=== PATIENT | female | born 1940 | race Caucasian/White ===

== ENCOUNTER → 2016-11-05 | Outpatient (CLI) | payer MEDICARE, OTHER ==
[2016-11-05 10:26] LABS: Basophils % (A) 0 %; CH 30.5; CHCM 32.3; Eosinophils # (A) 0.3 k/uL (0-0.7); Eosinophils % (A) 4 %; HCT 38.2 % (34.0-46.0); HDW 2.24; HGB 12.7 gm/dL (11.4-16.0); Luc # (Auto) 0.19; Luc % (Auto) 3; Lymphocytes % (A) 30 %; MCH 31.6 pg (25.0-35.0); MCHC 33.3 g/dL (31.0-37.0); MCV 95.1 fL (80.0-100.0); Mean Platelet Volume 6.9; Monocytes # (A) 0.3 k/uL (0-1.0); Monocytes % (A) 5 %; Neutrophils # (A) 3.8 k/uL (1.3-7.7); Neutrophils % (A) 58 %; RBC 4.02 m/uL (3.80-5.40); RDW 12.3 % (11.5-15.5); WBC 6.6 k/uL (3.8-10.6); WBC (Perox) 6.59
[2016-11-05 12:03] LABS: Erythrocyte Sedimentation Rate 58 mm/hr (0-20)
== END | disposition home or self-care (01) ==
LOC: LABWHC1 09:33
PROVIDERS: ATTEND Orthopaedic Surgery
DX: T84.069 Wear of articular bearing surface of unspecified internal prosthetic joint (principal); M25.462 Effusion, left knee; M25.562 Pain in left knee
CPT/HCPCS: 36415; 85025; 85652; 86140

== ENCOUNTER → 2017-04-05 | Outpatient (CLI) | payer MEDICARE, OTHER | END | disposition home or self-care (01) | LOC: LABPAT 16:28 | PROVIDERS: ATTEND Orthopaedic Surgery | DX: Z01.812 Encounter for preprocedural laboratory examination (principal) | CPT/HCPCS: 87070 ==

== ENCOUNTER → 2017-04-17 | Outpatient (CLI) | payer MEDICARE, OTHER ==
[2017-04-17 12:27] LABS: HCT 42.3 % (34.0-46.0); HGB 12.4 gm/dL (11.4-16.0); MCH 28.3 pg (25.0-35.0); MCHC 29.4 g/dL (31.0-37.0); MCV 96.1 fL (80.0-100.0); Mean Platelet Volume 8.2; Platelet Count 332 k/uL (150-450); WBC 12.1 k/uL (3.8-10.6)
[2017-04-17 12:29] LABS: Partial Thromboplastin Time 24.6 sec (22.0-30.0); Prothrombin Time 9.7 sec (9.0-12.0)
[2017-04-17 12:51] LABS: Appearance,Urine Clear (Clear); Bilirubin,Urine Negative (Negative); Blood,Urine Negative (Negative); Color,Urine Light Yellow; Glucose,Urine (UA) Negative (Negative); Ketones,Urine Negative (Negative); Leukocyte Esterase,Urine Negative (Negative); Nitrite,Urine Negative (Negative); PH, Urine 5.5 (5.0-8.0); Protein,Urine Negative (Negative); Specific Gravity,Urine 1.007 (1.001-1.035); Urobilinogen,Urine <2.0 mg/dL (<2.0)
[2017-04-17 12:53] LABS: ALT 28 U/L (9-52); AST 19 U/L (14-36); Albumin 4.6 g/dL (3.5-5.0); Alkaline Phosphatase 66 U/L (38-126); Anion Gap 12 mmol/L; Blood Urea Nitrogen 26 mg/dL (7-17); Calcium 10.4 mg/dL (8.4-10.2); Carbon Dioxide 32 mmol/L (22-30); Chloride 99 mmol/L (98-107); Glucose 109 mg/dL (74-99); Sodium 143 mmol/L (137-145); Total Bilirubin 0.8 mg/dL (0.2-1.3); Total Protein 7.9 g/dL (6.3-8.2)
== END | disposition home or self-care (01) ==
LOC: LABPAT 11:26
PROVIDERS: ATTEND Orthopaedic Surgery
DX: Z01.818 Encounter for other preprocedural examination (principal); M17.12 Unilateral primary osteoarthritis, left knee; Z96.652 Presence of left artificial knee joint; Z51.81 Encounter for therapeutic drug level monitoring; Z79.01 Long term (current) use of anticoagulants
CPT/HCPCS: 36415; 80053; 81003; 85027; 85610; 85730

== ENCOUNTER 2017-04-23 07:30 | Inpatient (IN) | payer MEDICARE, OTHER ==
[2017-04-16 12:48] VITALS: BMI 35.2
[~2017-04-23 07:30] MED LIST: ACETAMINOPHEN TAB 500 MG TAB PO ONE; CLINDAMYCIN 900 MG in DEXTROSE 5% IN WATER 50 ML IVPB ONE; HYDROmorphone 0.5 MG/0.5 ML SYRINGE IVP PRN; LIDOCAINE 1% 20 ML VIAL (10MG/ML) FOR IV START INTRADERMA PRN; MELOXICAM 7.5 MG TAB PO ONE; ONDANSETRON 4 MG/2 ML VIAL IVP ONE; TRANEXAMIC ACID 1,000 MG in SODIUM CHLORIDE 0.9% 50 ML IVPB ONE
[2017-04-23] MEDS ORDERED: ROPIVACAINE 246.25 MG, EPINEPHrine 0.5 MG, KETOROLAC 30 MG, cloNIDine HCL/PF 80 MCG, WA... MISCELLANE ONE ×5 (09:20)
[2017-04-23] MEDS: LACTATED RINGERS 1,000 ML IV SCH (12:45)
[2017-04-23] MEDS ORDERED: DEXAMETHASONE SOD PHOS (MDV) 100 MG/10 ML VIAL IV ONE (12:55)
[2017-04-23 13:05] LABS: Glucose,Whole Blood 87 mg/dL (75-99)
[2017-04-23] MEDS ORDERED: MIDAZOLAM 2 MG/2 ML VIAL IV ONE (13:13)
[2017-04-23] MEDS ORDERED: HYDROmorphone 2 MG/ML 1 ML SYRINGE IVP PRN (13:27)
[2017-04-23] MEDS ORDERED: MAGNESIUM HYDROXIDE 2,400 MG/10 ML CUP PO PRN (13:27)
[2017-04-23] MEDS ORDERED: HYDROcodone/APAP 5-325MG 1 EACH TAB PO PRN (13:27)
[2017-04-23] MEDS ORDERED: ONDANSETRON 4 MG/2 ML VIAL IVP PRN (13:27)
[2017-04-23] MEDS ORDERED: BISACODYL 10 MG SUPP RECTAL PRN (13:27)
[2017-04-23] MEDS ORDERED: NALOXONE 0.4 MG/ML 1 ML VIAL IV PRN (13:27)
[2017-04-23] MEDS ORDERED: hydrOXYzine PAMOATE 25 MG CAP PO PRN (13:27)
[2017-04-23] MEDS ORDERED: DIAZEPAM 5 MG TAB PO PRN ×2 (13:27)
[2017-04-23] MEDS ORDERED: HYDROmorphone 0.5 MG/0.5 ML SYRINGE IVP PRN ×3 (13:27)
[2017-04-23] MEDS ORDERED: NA PHOS,M-B/NA PHOS,DI-BA 133 ML ENEMA RECTAL PRN (13:27)
[2017-04-23] MEDS ORDERED: LIDOCAINE 1% INJ 10MG/ML (20 ML MDV) ONE (13:36)
[2017-04-23] MEDS ORDERED: PROPOFOL 10 MG/ML 20 ML VIAL IV ONE (13:36)
[2017-04-23] MEDS ORDERED: TRANEXAMIC ACID 1,000 MG/10 ML VIAL ONE (13:36)
[2017-04-23] MEDS ORDERED: ePHEDrine SULFATE/0.9% NACL/PF 50 MG/5 ML SYRINGE IV ONE (13:36)
[2017-04-23] MEDS ORDERED: MIDAZOLAM 2 MG/2 ML VIAL ONE (13:36)
[2017-04-23] MEDS ORDERED: fentaNYL (PF) 50 MCG/ML 2 ML AMP ONE (13:36)
[2017-04-23] MEDS ORDERED: SODIUM CHLORIDE 0.9% 100 ML BAG ONE (13:36)
--- NOTE | 2017-04-23 13:39 | P.ONQ ---
Anesthesiology Proc Note - PNB - Peripheral Nerve Block Performed Left Adductor Canal Infusion Time Out Performed: Yes Procedure Start Time: 13:18 Procedure Stop Time: 13:25 Indication: Acute Post-Operative Pain, Requested by physician Sedation Type: Sedate with meaningful contact maintained Preparation: Sterile Dressing Position: Supine Catheter: Indwelling Needle Types: On-Q Needle Size: 100mm (4") Needle Gauge: 20 Technique: Ultrasound Injectate: 0.5% Ropivacaine (see comment for volume) (ropi .5% 20ccc) Blood Aspirated: No Pain Paresthesia on Injection Noted: No Resistance on Injection: Normal Events: Uneventful and Well Tolerated
[2017-04-23] MEDS ORDERED: ROPIVACAINE 1,100 MG, SODIUM CHLORIDE 0.9% 330 ML MISCELLANE PRN ×2 (13:40)
[2017-04-23] MEDS ORDERED: CLINDAMYCIN 1,800 MG in SODIUM CHLORIDE 0.9% IRRIGATIO 3,000 ML IRRIGATION ONE (14:08)
[2017-04-23] MEDS ORDERED: LACTATED RINGERS 1,000 ML IV ONE (14:13)
--- NOTE | 2017-04-23 15:37 | P.OP ---
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 Postoperative Diagnosis: Failed left total knee arthroplasty Procedure(s) Performed: Revision left total knee arthroplasty Implants: Zam[employer] Legion Oxinium femoral component size 4, left constrained [employer] left revision tibial baseplate size 4 Zamora [employer] Nephew size 13 mm Sima II constrained articular insert, size 3-4 [employer] pressfit stem 13mm x 120mm (Tibia) [employer] Offset compliance technician 6mm [employer] pressfit stem 16mm x 160mm (femur) All components were cemented using Adioso antibiotic bone cement with Tobramycin x2 The articulation is Oxinium on polyethylene. Anesthesia: spinal Surgeon: Rahat Gross Relocation Services Specialist #1: Shameka Harding Estimated Blood Loss (ml): 100 Pathology: other (culture) Condition: stable Disposition: PACU Indications for Procedure: This is a 76-year-old female who presented to my office with pain and instability of her left total knee. Her knee replacement was done a number of years ago at a different hospital. X-rays demonstrate significant polyethylene wear and after discussing the surgical and nonsurgical treatment options with her at length, she wishes to proceed with revision left total knee arthroplasty. Informed consent was obtained. Operative Findings: The operative findings are consistent with severe polyethylene wear left total knee Description of Procedure: Patient was seen in the preoperative area consent was reviewed and operative site was marked with a skin marker. An adductor canal pain catheter was placed by anesthesia in the preoperative area. Patient was then brought to the operating room and given preoperative antibiotics intravenously. A spinal anesthetic was administered by the anesthesia department. A tourniquet was placed on the upper thigh and the lower extremity was prepped and draped in usual sterile fashion. A gram of transexamic acid was given. A universal timeout was then performed which confirmed the patient's name, surgical site, ALLERGIES, and consent. The lower extremity was then exsanguinated and tourniquet was inflated to 250 mmHg. A standard and anterior midline approach to the knee was performed. The skin and subcutaneous tissue was dissected down to the patellar tendon. A medial parapatellar arthrotomy was then performed. The knee was then extended, the patellar was everted, and the knee was again flexed. On gross visual inspection, there is large amount of synovitis as well as significant polyethylene wear. The polyethylene component was then easily removed with an osteotome. Attention was then directed to the femoral component. Using a micro -oscillating saw and osteotome, the cement implant interface was disrupted. The femoral component was then removed with minimal bone loss. Next attention was then directed to the tibial component. Again using a micro-oscillating saw and osteotome, the tibial component was removed with minimal bone loss. Attention was then directed to preparing the femoral side of the revision. The femoral canal was reamed with a beamer hand to the appropriate size. The distal cutting block was then placed in the distal femur cut was then performed. Next the sizing guide was then placed, and set for 3 of external rotation. Anterior and posterior cuts, as well as the chamfer cuts were then made. Next, the trial femur was then placed in the cutting guide for the box was then placed. The bone was then reamed and broached for the femoral box. The trial was then removed. Attention was then directed to the tibia. The tibia was then gently subluxed forward with large bent knee retractor. The intramedullary reamer was then placed down the canal of the tibia. The cutting jig was then placed in the proximal tibia was then cut. The tibia was then sized, and broached for the tibial sleeve. The tibia was also drilled. Next the trials were then placed with appropriate liner. Knee was able to fully extend, and flex to 120 without difficulty. Also stable throughout all range of motion. All the trials were then removed. The cut surfaces of bone were then irrigated with pulsatile lavage. The posterior structures were injected with the ropivacaine solution. The knee was also irrigated with Irrisept solution. The components were then opened, the cement was mixed, and the components were then cemented in place. The cement was allowed to harden with the knee in full extension. While the cement was hardening, the remaining soft tissues were then injected with a ropivacaine solution, which consisted of 246.25 mg of ropivacaine, 0.5 mg of epinephrine, 30 mg of Toradol, 80 g of clonidine, and 48.45 mL of sterile water, for a total of 100 mL of fluid injected. After the cemented hardened. The tourniquet was released, and hemostasis was obtained. A second gram of transexamic acid was given. The knee was again irrigated. The knee was again taken through range of motion and found to be stable throughout all range of motion of 0-130 , and the patella tracked normally. The fascia was then closed with #2 strata fix suture. The subcutaneous tissue was closed with 3-0 Vicryl and 3-0 strata fix. Dermabond glue was used for the skin and placed with the knee in flexion. The patient was placed in a sterile silver dressing. Patient was then transferred to recovery room in stable condition. The customer care assistant JOHANNA Alvarado was required due the complexity surgery and the need for a skilled surgical first assistant. She assisted in positioning, draping, retraction, and closure of the wound.
--- NOTE | 2017-04-23 16:34 | XR ---
EXAMINATION TYPE: XR knee limited LT DATE OF EXAM: 04/23/2017 CLINICAL HISTORY: Left knee pain and arthritis status post total knee replacement. TECHNIQUE: Portable AP and crosstable lateral views of the left knee are obtained immediately postop eratively. COMPARISON: None FINDINGS: Metallic hardware from total left knee arthroplasty is seen and appears satisfactory in al ignment and position. There is evidence of recent surgery with diffuse subcutaneous gas and soft tis kyle swelling are noted. IMPRESSION: METALLIC HARDWARE FROM TOTAL LEFT KNEE ARTHROPLASTY IS SATISFACTORY IN ALIGNMENT.
[2017-04-23] MEDS: CLINDAMYCIN 900 MG in DEXTROSE 5% IN WATER 50 ML IVPB SCH ×2 (20:18)
[2017-04-23] MEDS: SENNOSIDES-DOCUSATE SODIUM 1 EACH TAB PO SCH (20:18)
[2017-04-23] MEDS: ASPIRIN 325 MG TAB PO SCH (20:18)
[2017-04-24] MEDS: LACTATED RINGERS 1,000 ML IV SCH (05:50)
[2017-04-24] MEDS: SODIUM CHLORIDE 0.9% 1,000 ML IV SCH ×3 (05:50→20:51)
[2017-04-24] MEDS: CLINDAMYCIN 900 MG in DEXTROSE 5% IN WATER 50 ML IVPB SCH ×2 (05:50)
[2017-04-24] MEDS: LEVOTHYROXINE 112 MCG TAB PO SCH (06:10)
--- NOTE | 2017-04-24 07:15 | P.PN ---
Progress Note - Text Progress Note Date: 04/24/17 Patient is a 76 y.o s/p Left knee replacement PO day 1. Patient had Adductor canal catheter placed for post op pain control. Patient going well. VAS 3/10. Patient extremely happy with pain control. Ambulating without weakness.
[2017-04-24 07:58] LABS: Basophils % (A) 0 %; Eosinophils % (A) 0 %; HCT 34.7 % (34.0-46.0); HGB 10.6 gm/dL (11.4-16.0); Lymphocytes # (A) 0.8 k/uL (1.0-4.8); Lymphocytes % (A) 5 %; MCH 29.7 pg (25.0-35.0); MCHC 30.7 g/dL (31.0-37.0); MCV 96.9 fL (80.0-100.0); Mean Platelet Volume 7.6; Monocytes # (A) 0.8 k/uL (0-1.0); Monocytes % (A) 5 %; Neutrophils # (A) 15.3 k/uL (1.3-7.7); Neutrophils % (A) 90 %; Platelet Count 285 k/uL (150-450); RBC 3.58 m/uL (3.80-5.40); RDW 12.7 % (11.5-15.5); WBC 17.1 k/uL (3.8-10.6)
[2017-04-24] MEDS: HYDROcodone/APAP 5-325MG 1 EACH TAB PO PRN ×2 (08:22→15:46)
--- NOTE | 2017-04-24 08:38 | CONS ---
CONSULTATION DATE OF SERVICE: 04/23/2017. REASON FOR CONSULTATION: Advice regarding hypertension and multiple other medical issues requested by Dr. Gross. 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 Gross. There is no history of any fever or rigors. No history of headache. No history of chest pain or palpitations. No shortness of breath, hematochezia or melena at this time. PAST MEDICAL HISTORY: Hypertension, mitral valve prolapse, history of DJD, autoimmune response to the previous surgery. MEDICATIONS: Medications prior to admission include: 1. Prednisone 5 mg p.o. daily. 2. Vitamin B complex 1 p.o. daily. 3. Naprosyn 375 mg p.o. b.i.d. 4. Multivitamins 1 p.o. daily. 5. Hyzaar 50/12.5 mg p.o. q.a.m. 6. Synthroid 112 mcg p.o. q.a.m. 7. Iron sulfate 325 mg p.o. daily. 8. Diltiazem 120 mg p.o. q.h.s. 9. Aspirin 81 mg p.o. q.h.s. daily. 10.Vitamin C 500 mg p.o. daily. 11.Acetaminophen ER 650 mg p.o. b.i.d. ALLERGIES: Allergies are CEPHALOSPORIN, LATEX, MACROBID, SULFA, ULTRASOUND COUPLING MEDIUM. FAMILY HISTORY: History of Crohn's disease in the family. SOCIAL HISTORY: No history of smoking. No history of alcohol. REVIEW OF SYSTEMS: ENT: No diminished hearing or diminished vision. CARDIOVASCULAR SYSTEM: No angina. RESPIRATORY SYSTEM: No cough or hemoptysis. GI: No nausea. : No dysuria. NERVOUS SYSTEM: No numbness or weakness. ALLERGY/IMMUNOLOGY: No history of asthma. MUSCULOSKELETAL: As mentioned earlier. HEMATOLOGY/ONCOLOGY: No history of anemia. ENDOCRINE: Hypothyroidism. CONSTITUTIONAL: As mentioned earlier. DERMATOLOGY: Negative. RHEUMATOLOGY: Negative. PSYCHIATRY: As mentioned earlier. PHYSICAL EXAMINATION: The patient is alert and oriented x3. Pulse is 89, blood pressure is 136/66, respirations 15, temperature 97.5, pulse ox 96% on room air. HEENT: Conjunctivae normal. Oral mucosa moist. Neck is no jugular venous distention. No carotid bruit. No lymph node enlargement. CARDIOVASCULAR: S1 and S2 muffled. RESPIRATORY: Breath sounds diminished at the bases. No rhonchi no crackles. ABDOMEN: Soft, nontender. LEGS: Status post surgery. NERVOUS SYSTEM: Higher functions as mentioned earlier. Moves all 4 limbs. No focal motor or sensory deficits LYMPHATICS: No lymphadenopathy of the neck, axillae or groin. SKIN: No ulcer, rash or bleeding. JOINTS: Noted. LAB STUDIES: WBC 12., previously done. Otherwise UA unremarkable. ASSESSMENT: 1. Status post revision of the left total knee joint arthroplasty. 2. Hypertension. 3. History of mitral valve prolapse. 4. History of degenerative joint disease. 5. 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 6. History of irritable bowel syndrome. 7. History of cholecystectomy. 8. FULL CODE. RECOMMENDATIONS AND DISCUSSION: This 76-year-old woman who presented with multiple complex medical issues, will monitor the patient closely. Continue the current medications. Continue symptomatic treatment. Otherwise I would recommend resume the home medications and DVT prophylaxis and incentive spirometry. We will follow the patient closely with you. The patient may be asked to follow up with primary physician after discharge. We will follow the patient closely with you and followup labs also will be recommended. Thank you Dr. Gross for letting us participate in the care of this patient. The patient is on aspirin twice daily. MMODL / IJN: [id number] / MTDChris
--- NOTE | 2017-04-24 08:47 | P.PN ---
Subjective Progress Note Date: 04/24/17 This is a 76-year-old female who is status post revision left total knee arthroplasty. This is postoperative day #1. Patient states her pain is well controlled and she has been up and out of bed several times today. Patient denies any further complaints. Objective - Vital Signs Vital signs: Vital Signs Temp 98.0 F 04/24/17 01:48 Pulse 77 04/24/17 01:48 Resp 16 04/24/17 01:48 BP 127/73 04/24/17 01:48 Pulse Ox 93 L 04/24/17 01:48 Intake & Output 04/23/17 04/24/17 04/24/17 18:59 06:59 18:59 Intake Total 1557 938 Output Total 100 Balance 1457 938 Weight 97.522 kg Intake: IV 1557 Intake, IV Titration 300 Amount Sodium Chloride 0.9% 1, 300 000 ml @ 65 mls/hr IV . [id number] [facility] Rx#:[id number] Oral 638 Output: Estimated Blood Loss 100 Other: # Voids 2 - Exam Vital signs are stable. Patient is in no acute distress and is alert and oriented 3. Calf is soft and nontender. Dressing is clean, dry, and intact. Neurovascular status intact. Patient has full foot and ankle motion without difficulty. - Labs CBC & Chem 7: 04/24/17 07:17 Labs: Abnormal Lab Results - Last 24 Hours (Table) 04/24/17 Range/Units 07:17 WBC 17.1 H (3.8-10.6) k/uL RBC 3.58 L (3.80-5.40) m/uL Hgb 10.6 L (11.4-16.0) gm/dL MCHC 30.7 L (31.0-37.0) g/dL Neutrophils # 15.3 H (1.3-7.7) k/uL Lymphocytes # 0.8 L (1.0-4.8) k/uL Microbiology - Last 24 Hours (Table) 04/23/17 14:06 Gram Stain - Preliminary Knee - Left Wound Culture - Preliminary 04/23/17 14:06 Anaerobic Culture - Preliminary Knee - Left Assessment and Plan (1) S/P total knee arthroplasty Current Visit: Yes Status: Acute Code(s): Z96.659 - PRESENCE OF UNSPECIFIED ARTIFICIAL KNEE JOINT SNOMED Code(s): 2265794606664 (2) Prosthetic wear following total knee arthroplasty Current Visit: Yes Status: Acute Code(s): T84.069A - WEAR OF ARTIC BEARING SURFACE OF UNSP INT PROSTH JOINT, INIT; Z96.659 - PRESENCE OF UNSPECIFIED ARTIFICIAL KNEE JOINT SNOMED Code(s): 392786373 Plan: #1 Continue with routine postoperative care, leave dressing in place for one week #2 Anticoagulation with aspirin. #3 Physical therapy and CPM today. #4 Appreciate input from medicine. #5 Anticipate discharge to rehab Saturday.
[2017-04-24] MEDS: predniSONE 5 MG TAB PO SCH (09:01)
[2017-04-24] MEDS: ASPIRIN 325 MG TAB PO SCH ×2 (09:02→20:45)
[2017-04-24] MEDS: FERROUS SULFATE 325 MG TAB PO SCH (09:02)
[2017-04-24] MEDS: LOSARTAN-HCTZ 50-12.5 MG 1 EACH TAB PO SCH (09:03)
[2017-04-24] MEDS: MULTIVITAMINS, THERA 1 EACH TAB PO SCH (09:04)
[2017-04-24] MEDS: MELOXICAM 7.5 MG TAB PO SCH (11:57)
[2017-04-24] MEDS: B COMPLEX-VIT C-VIT E-ZINC 1 EACH TAB PO SCH (11:58)
[2017-04-24] MEDS ORDERED: PANTOPRAZOLE 40 MG/10 ML VIAL IVP SCH (13:15)
--- NOTE | 2017-04-24 14:48 | XR ---
EXAMINATION TYPE: XR chest 1V DATE OF EXAM: 04/24/2017 COMPARISON: NONE HISTORY: Rehabilitation placement TECHNIQUE: Single frontal view of the chest is obtained. FINDINGS: Patient is rotated. Heart is enlarged. Prominent lung volume may be indicative of COPD. Th ere is no evident airspace disease, pneumothorax, or pleural effusion. Acromioclavicular joint arthro serge noted in the shoulders. IMPRESSION: Cardiomegaly. No acute abnormality evident. Rotated exam.
--- NOTE | 2017-04-24 17:19 | PN ---
PROGRESS NOTE DATE OF SERVICE: 04/24/2017 This 76-year-old woman who was admitted with revision of left total knee arthroplasty is improving significantly. No chest pain. No palpitations. No fever. PHYSICAL EXAMINATION: Alert and oriented x3. Pulse 68, blood pressure 120/58, respiration 16, temperature 97.8, pulse ox 93% on 2 L. HEENT: Conjunctivae normal. Oral mucosa moist. NECK: No jugular venous distention. No carotid bruit. No lymph node enlargement. CARDIOVASCULAR SYSTEM: S1, S2 muffled. RESPIRATORY SYSTEM: Breath sounds diminished at the bases. No rhonchi. No crackles. ABDOMEN: Soft, non-tender. No mass palpable. LEGS: Status post surgery. NERVOUS SYSTEM: Higher functions as mentioned earlier. No focal motor or sensory deficit. LYMPHATICS: No lymph node palpable in neck, axillae or groin. LABS: WBC 17.1, hemoglobin 10.6. ASSESSMENT: 1. Status post revision of the left total knee arthroplasty. 2. Hypertension. 3. Increased white count, possibly reactive. 4. History of mitral valve prolapse. 5. History of degenerative joint disease. 6. 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 7. History of irritable bowel syndrome. 8. History of cholecystectomy. 9. FULL CODE. RECOMMENDATIONS AND DISCUSSION: In this 76-year-old woman who presented with multiple complex medical issues, we will monitor the patient closely, continue the current medications, continue symptomatic treatment. I would recommend UA with micro and continue the current medications. I would also recommend repeat CBC. is also requested by the patient. Will continue to monitor. UA with micro has been ordered. MMODL / IJN: [id number] / BEATA
[2017-04-24] MEDS: SENNOSIDES-DOCUSATE SODIUM 1 EACH TAB PO SCH (20:45)
[2017-04-24] MEDS: DILTIAZEM CD 120 MG CAP.ER.24H PO SCH (20:45)
[2017-04-24] MEDS ORDERED: ASPIRIN 81 MG PO SCH (21:00)
[2017-04-25] MEDS: HYDROcodone/APAP 5-325MG 1 EACH TAB PO PRN ×2 (02:03→07:57)
[2017-04-25] MEDS: LACTATED RINGERS 1,000 ML IV SCH (05:10)
[2017-04-25] MEDS: LEVOTHYROXINE 112 MCG TAB PO SCH (06:11)
[2017-04-25] MEDS: MELOXICAM 7.5 MG TAB PO SCH (07:56)
[2017-04-25] MEDS: MULTIVITAMINS, THERA 1 EACH TAB PO SCH (07:57)
[2017-04-25] MEDS: ASPIRIN 325 MG TAB PO SCH ×2 (07:57→20:38)
[2017-04-25] MEDS: LOSARTAN-HCTZ 50-12.5 MG 1 EACH TAB PO SCH (07:57)
[2017-04-25] MEDS: FERROUS SULFATE 325 MG TAB PO SCH (07:57)
[2017-04-25] MEDS: B COMPLEX-VIT C-VIT E-ZINC 1 EACH TAB PO SCH (07:57)
[2017-04-25] MEDS: predniSONE 5 MG TAB PO SCH (07:57)
[2017-04-25] MEDS: PANTOPRAZOLE 40 MG TABLET PO SCH (07:58)
[2017-04-25] MEDS: SODIUM CHLORIDE 0.9% 1,000 ML IV SCH (08:00)
[2017-04-25 08:04] LABS: Basophils % (A) 0 %; Eosinophils # (A) 0.2 k/uL (0-0.7); Eosinophils % (A) 3 %; HGB 10.1 gm/dL (11.4-16.0); Lymphocytes # (A) 2.7 k/uL (1.0-4.8); Lymphocytes % (A) 30 %; MCH 29.4 pg (25.0-35.0); MCHC 30.8 g/dL (31.0-37.0); MCV 95.7 fL (80.0-100.0); Monocytes # (A) 0.7 k/uL (0-1.0); Monocytes % (A) 7 %; Neutrophils # (A) 5.3 k/uL (1.3-7.7); Neutrophils % (A) 58 %; Platelet Count 280 k/uL (150-450); RBC 3.45 m/uL (3.80-5.40); RDW 12.2 % (11.5-15.5)
--- NOTE | 2017-04-25 08:56 | P.PN ---
Subjective Progress Note Date: 04/25/17 This is a 76-year-old female who is status post revision left total knee arthroplasty. This is postoperative day #2. Patient states her pain is a little worse today. Patient states she has been up and walking with physical therapy. Patient reports an episode of dizziness and nausea with walking today. Patient denies any chest pain, shortness of breath, fever/chills, numbness, weakness or tingling. Objective - Vital Signs Vital signs: Vital Signs Temp 98 F 04/25/17 07:00 Pulse 69 04/25/17 07:00 Resp 14 04/25/17 07:00 BP 121/79 04/25/17 07:00 Pulse Ox 94 L 04/25/17 07:00 Intake & Output 04/24/17 04/25/17 04/25/17 18:59 06:59 18:59 Intake Total 930 500 Balance 930 500 Intake: Intake, IV Titration 450 Amount Sodium Chloride 0.9% 1, 450 000 ml @ 65 mls/hr IV . [id number] [facility] Rx#:[id number] Oral 480 500 Other: # Voids 2 1 - Exam Vital signs are stable. Patient is in no acute distress and is alert and oriented 3. Calf is soft and nontender. Dressing is clean, dry, and intact. Neurovascular status intact. Patient has full foot and ankle motion without difficulty. - Labs CBC & Chem 7: 04/25/17 07:42 Labs: Abnormal Lab Results - Last 24 Hours (Table) 04/25/17 Range/Units 07:42 RBC 3.45 L (3.80-5.40) m/uL Hgb 10.1 L (11.4-16.0) gm/dL Hct 33.0 L (34.0-46.0) % MCHC 30.8 L (31.0-37.0) g/dL Microbiology - Last 24 Hours (Table) 04/23/17 14:06 Gram Stain - Preliminary Knee - Left Wound Culture - Preliminary Assessment and Plan (1) S/P total knee arthroplasty Current Visit: Yes Status: Acute Code(s): Z96.659 - PRESENCE OF UNSPECIFIED ARTIFICIAL KNEE JOINT SNOMED Code(s): 3689559152532 (2) Prosthetic wear following total knee arthroplasty Current Visit: Yes Status: Acute Code(s): T84.069A - WEAR OF ARTIC BEARING SURFACE OF UNSP INT PROSTH JOINT, INIT; Z96.659 - PRESENCE OF UNSPECIFIED ARTIFICIAL KNEE JOINT SNOMED Code(s): 423384456 Plan: #1 Continue with routine postoperative care, leave dressing in place for one week #2 Anticoagulation with aspirin. #3 Physical therapy and CPM today. #4 Appreciate input from medicine. #5 Anticipate discharge to rehab Saturday.
[2017-04-25] MEDS ORDERED: HYDROcodone/APAP 7.5-325MG 1 EACH TAB PO PRN (08:57)
[2017-04-25 11:59] LABS: Appearance,Urine Clear (Clear); Bilirubin,Urine Negative (Negative); Blood,Urine Negative (Negative); Color,Urine Yellow; Glucose,Urine (UA) Negative (Negative); Ketones,Urine Negative (Negative); Leukocyte Esterase,Urine Negative (Negative); Nitrite,Urine Negative (Negative); PH, Urine 5.5 (5.0-8.0); Protein,Urine Negative (Negative); Urobilinogen,Urine <2.0 mg/dL (<2.0)
[2017-04-25] MEDS: HYDROcodone/APAP 7.5-325MG 1 EACH TAB PO PRN ×2 (14:40→20:39)
[2017-04-25 19:54] VITALS: RESP 16
[2017-04-25] MEDS: DILTIAZEM CD 120 MG CAP.ER.24H PO SCH (20:38)
--- NOTE | 2017-04-25 21:42 | PN ---
PROGRESS NOTE DATE OF SERVICE: 04/25/2017 INTERVAL HISTORY: This 76-year-old woman who was admitted after revision of left total knee arthroplasty improving significantly. The hip pain persists. No chest pain. No palpitations. No fever. PHYSICAL EXAM: Alert and oriented x3. Pulse 72, blood pressure 140/76, respirations 17, temperature 98.4, pulse ox 98% on room air. HEENT: Conjunctivae normal. NECK: No jugular venous distention. CARDIOVASCULAR: S1, S2 muffled. RESPIRATORY: Breath sounds diminished in the bases. No rhonchi. No crackles. ABDOMEN: Soft, nontender. No mass palpable. LEGS: Status post surgery. NERVOUS SYSTEM: No focal deficits. LABS: WBC 9, hemoglobin is 10.1. UA unremarkable. ASSESSMENT: 1. Status post revision of the left total knee arthroplasty. 2. Increased WBC, possibly reactive. 3. Hypertension. 4. History of mitral valve prolapse. 5. History of degenerative joint disease. 6. 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 7. History of irritable bowel syndrome. 8. History of cholecystectomy. 9. FULL CODE. RECOMMENDATIONS AND DISCUSSION: Recommend to continue current medical management and continue symptomatic treatment. Incentive spirometry, DVT prophylaxis. Closely monitor. Possible ECF rehab at the swing bed in [place], according to the patient. Further recommendations to follow. MMODL / IJN: [id number] /
[2017-04-26] MEDS: LACTATED RINGERS 1,000 ML IV SCH (02:21)
[2017-04-26] MEDS: HYDROcodone/APAP 7.5-325MG 1 EACH TAB PO PRN ×3 (02:34→14:10)
[2017-04-26] MEDS: LEVOTHYROXINE 112 MCG TAB PO SCH (05:53)
[2017-04-26 07:52] VITALS: BP 123/78; PULSE 78
--- NOTE | 2017-04-26 08:17 | P.DS ---
Providers Date of admission: 04/23/17 12:08 Expected date of discharge: 04/26/17 Attending physician: Rahat Gross Consults: 04/23/17 13:27 Consult Physician Routine Consulting Provider: Myriam Hayward Consult Reason/Comments: medical management Do you want consulting provider notified?: Yes Primary care physician: Stated None - Discharge Diagnosis(es) (1) S/P total knee arthroplasty Current Visit: Yes Status: Acute (2) Prosthetic wear following total knee arthroplasty Current Visit: Yes Status: Acute Hospital Course: This is a 76-year-old female with known history of polyethylene wear of previous left total knee arthroplasty. The patient presents for evaluation. After discussion and consideration patient elects to proceed with revision total knee arthroplasty. The patient is seen preoperatively by Dr. Gross and cleared for surgery. Patient is admitted to [facility] on 04/23/2017 for revision total knee arthroplasty. The procedures performed without complication or sequelae. The patient is doing well postoperatively. Labs and vital signs are stable on day of discharge. On day of discharge patient's knee incision is healing well. There is minimal erythema. There is no drainage noted at this time. There is minimal soft tissue swelling to the knee. Patient has full foot and ankle motion without difficulty or pain. Neurovascular status to the left lower extremity is intact. Patient is discharged to rehab in good condition. Please see med rec for accurate list of home medications. Plan - Discharge Summary Discharge Rx Participant: No New Discharge Prescriptions: New Aspirin 325 mg PO BID #60 tab HYDROcodone/APAP 7.5-325MG [[place] 7.5-325] 1 - 2 tab PO Q4-6H PRN #90 tab PRN Reason: Pain Sennosides [Senokot] 1 tab PO BID #60 tablet No Action Naproxen [EC-Naprosyn] 375 mg PO BID Losartan-Hctz 50-12.5 mg [Hyzaar 50-12.5] 1 tab PO QAM Levothyroxine Sodium [Synthroid] 112 mcg PO QAM Diltiazem HCl [Diltiazem 12Hr ER] 120 mg PO HS predniSONE 5 mg PO DAILY Ascorbic Acid [Vitamin C] 500 mg PO DAILY Vitamin B Complex 1 cap PO DAILY Multivitamins, Thera [Multivitamin (formulary)] 1 tab PO DAILY Ferrous Sulfate [Feosol] 325 mg PO DAILY Aspirin 81 mg PO HS Acetaminophen [Acetaminophen ER] 650 mg PO BID Discharge Medication List Acetaminophen [Acetaminophen ER] 650 mg PO BID 04/16/17 [History] Ascorbic Acid [Vitamin C] 500 mg PO DAILY 04/16/17 [History] Aspirin 81 mg PO HS 04/16/17 [History] Diltiazem HCl [Diltiazem 12Hr ER] 120 mg PO HS 04/16/17 [History] Ferrous Sulfate [Feosol] 325 mg PO DAILY 04/16/17 [History] Levothyroxine Sodium [Synthroid] 112 mcg PO QAM 04/16/17 [History] Losartan-Hctz 50-12.5 mg [Hyzaar 50-12.5] 1 tab PO QAM 04/16/17 [History] Multivitamins, Thera [Multivitamin (formulary)] 1 tab PO DAILY 04/16/17 [History ] Naproxen [EC-Naprosyn] 375 mg PO BID 04/16/17 [History] Vitamin B Complex 1 cap PO DAILY 04/16/17 [History] predniSONE 5 mg PO DAILY 04/16/17 [History] Aspirin 325 mg PO BID #60 tab 04/26/17 [Rx] HYDROcodone/APAP 7.5-325MG [[place] 7.5-325] 1 - 2 tab PO Q4-6H PRN #90 tab [Rx] Sennosides [Senokot] 1 tab PO BID #60 tablet 04/26/17 [Rx] Follow up Appointment(s)/Referral(s): Rahat Gross DO [Doctor of Osteopathic Medicine] - 2 Weeks Ambulatory/Diagnostic Orders: Continuous Passive Motion (CPM) Machine [DME.AMB1] Time Frame: 3 Weeks, Location : Determined By Patient Activity/Diet/Wound Care/Special Instructions: Weightbearing as tolerated with a walker CPM 5-6h daily Leave dressing intact. May be removed by home care nurse in 7 days, 04/30/2017. May shower with dressing on. [facility] with questions or concerns [phone] Discharge Disposition: TRANSFER TO SNF/ECF
[2017-04-26 08:45] VITALS: TEMP 97.6
[2017-04-26] MEDS: PANTOPRAZOLE 40 MG TABLET PO SCH (08:46)
[2017-04-26] MEDS: LOSARTAN-HCTZ 50-12.5 MG 1 EACH TAB PO SCH (08:46)
[2017-04-26] MEDS: MULTIVITAMINS, THERA 1 EACH TAB PO SCH (08:46)
[2017-04-26] MEDS: ASPIRIN 325 MG TAB PO SCH (08:46)
[2017-04-26] MEDS: FERROUS SULFATE 325 MG TAB PO SCH (08:46)
[2017-04-26] MEDS: predniSONE 5 MG TAB PO SCH (08:47)
[2017-04-26] MEDS: B COMPLEX-VIT C-VIT E-ZINC 1 EACH TAB PO SCH (13:19)
--- NOTE | 2017-04-27 10:26 | PN ---
PROGRESS NOTE DATE OF SERVICE: 04/26/2017 This 76-year-old woman is admitted with effusion left upper arm is improving significantly. No chest pain. No palpitations. No fever. The patient is being planned to be sent to the [facility] at this time. No chest pain. No palpitations. No fever. EXAM: Alert and oriented times three. Pulse is 78. Blood pressure 120/70, respirations 16, temperature 97.2, pulse ox 98% on room air. HEENT: Conjunctivae normal. NECK: No jugular venous distention. CARDIOVASCULAR: S1, S2 muffled. Respiratory: Breath sounds diminished in the bases. No rhonchi and no crackles. Abdomen soft. Legs: Status post surgery. LABS: WBC 9, hemoglobin 10.1. UA noted. ASSESSMENT: 1. Status post revision total knee arthroplasty. 2. Increased WBC possibly reactive. 3. Hypertension. 4. History of mitral valve prolapse. 5. History of degenerative joint disease. 6. History of autoimmune response previously. 8. Gait dysfunction. RECOMMENDATIONS AND DISCUSSION: Recommend to continue current medications, management and symptomatic treatment. Otherwise, at this time, I recommend continue with rehab activities and follow with primary physician. Resume the home medications. Further recommendations to follow. MMODL / IJN: [id number] / BEATA
== END 2017-04-26 14:25 | DRG 468 ==
LOC: 2ORMAIN 12:08 → 3SUR 15:54
PROVIDERS: ADMIT Orthopaedic Surgery; ATTEND Orthopaedic Surgery
PROC: 0SRD069 Replacement of Left Knee Joint with Oxidized Zirconium on Polyethylene Synthetic Substitute, Cemented, Open Approach (ICD-10-PCS; 2017-04-23)
PROC: 0SPD0JZ Removal of Synthetic Substitute from Left Knee Joint, Open Approach (ICD-10-PCS; principal; 2017-04-23 13:40)
DX: T84.093A Other mechanical complication of internal left knee prosthesis, initial encounter (principal); I34.1 Nonrheumatic mitral (valve) prolapse; E03.9 Hypothyroidism, unspecified; E78.5 Hyperlipidemia, unspecified; K58.9 Irritable bowel syndrome, unspecified; Y79.2 Prosthetic and other implants, materials and accessory orthopedic devices associated with adverse incidents; H91.90 Unspecified hearing loss, unspecified ear; I10 Essential (primary) hypertension; Z96.653 Presence of artificial knee joint, bilateral; R26.9 Unspecified abnormalities of gait and mobility; Z88.2 Allergy status to sulfonamides; Z88.8 Allergy status to other drugs, medicaments and biological substances; Z79.82 Long term (current) use of aspirin; Z79.899 Other long term (current) drug therapy; Z79.52 Long term (current) use of systemic steroids; Z90.89 Acquired absence of other organs; Z90.49 Acquired absence of other specified parts of digestive tract; Z98.49 Cataract extraction status, unspecified eye; Z87.442 Personal history of urinary calculi
CPT/HCPCS: 71045; 81003; 85025; 87070; 87075; 87205